=== PATIENT | female | born 1975 | race Caucasian/White ===

== ENCOUNTER 2022-01-05 07:07 | Day surgery (SDC) | payer OTHER ==
[~2022-01-05 07:07] MED LIST: Sodium Chloride 0.9% 10 ML Syringe FLUSH PRN
[2022-01-05] MEDS ORDERED: Propofol 200 MG/20 ML SDV IV ONE (07:08)
[2022-01-05] MEDS ORDERED: Midazolam 1 MG/ML 2 ML SDV IV ONE (07:08)
[2022-01-05] MEDS: Lactated Ringers 1,000 ML IV SCH (07:50)
== END 2022-01-05 09:35 | disposition home or self-care (01) ==
LOC: FB.SDS 07:07
PROVIDERS: ATTEND Surgery
DX: Z12.11 Encounter for screening for malignant neoplasm of colon (principal)
CPT/HCPCS: 81025; J2250; J2704; J7120